=== PATIENT | male | born 1955 | race Caucasian/White ===

== ENCOUNTER 2019-06-01 06:13 | Day surgery (SDC) | payer MEDICAID ==
[~2019-06-01] VITALS: Ht 170.2 cm; Wt 93.2 kg
[~2019-06-01 06:13] MED LIST: SODIUM CHLORIDE 0.9% 1,000 ML IV ONE
[2019-06-01] MEDS ORDERED: FOLI1 PO (06:33)
[2019-06-01] MEDS ORDERED: AMLO10TA7 PO (06:33)
[2019-06-01] MEDS ORDERED: FERR-89 PO (06:33)
[2019-06-01] MEDS ORDERED: SPIR25 PO (06:33)
[2019-06-01] MEDS ORDERED: ASPI81 PO (06:33)
[2019-06-01] MEDS ORDERED: OMEP20 PO (06:33)
[2019-06-01] MEDS ORDERED: SODIUM CHLORIDE 0.9% 1,000 ML IV ONE (08:00)
[2019-06-01] MEDS ORDERED: PROPOFOL 1% 20 ML VIAL IVP ONE (12:00)
[2019-06-01] MEDS ORDERED: LIDOCAINE/PF 2% 5 ML VIAL INJ ONE (12:00)
== END 2019-06-01 09:30 | disposition home or self-care (01) ==
LOC: SURGERY 06:13
PROVIDERS: ATTEND Internal Medicine Gastroenterology
DX: K70.30 Alcoholic cirrhosis of liver without ascites (principal); K29.00 Acute gastritis without bleeding; K21.9 Gastro-esophageal reflux disease without esophagitis; I10 Essential (primary) hypertension; F41.9 Anxiety disorder, unspecified; Z98.890 Other specified postprocedural states; Z72.89 Other problems related to lifestyle; Z79.899 Other long term (current) drug therapy; Z90.49 Acquired absence of other specified parts of digestive tract; D50.9 Iron deficiency anemia, unspecified
CPT/HCPCS: 43239; 88305; 88312; 88313; 93005; C1769; J2704; J3490; J7030